=== PATIENT | female | born 1995 | race Caucasian/White ===

== ENCOUNTER → 2017-12-12 11:33 | Outpatient (CLI) | payer OTHER, SELFPAY ==
[2017-12-12 12:05] LABS: Basophils % 0.2 % (0.1-2.0); Eosinophils # 0.1 K/mm3 (0.0-0.4); Eosinophils % 2.1 % (0.1-12.0); Hematocrit 44.1 % (37.0-47.0); Hemoglobin 14.7 g/dL (12.2-16.2); Lymphocytes % 38.5 K/mm3 (10-50); Mean Corpuscular HGB Conc 33.3 g/dL (31.8-35.4); Mean Corpuscular Hemoglobin 33.5 pg (27.0-31.2); Mean Corpuscular Volume 100.4 fl (81-99); Mean Platelet Volume 8.2 fl (7.4-10.4); Monocytes # 0.4 K/mm3 (0.1-1.0); Monocytes % 7.3 % (1.7-9.3); Neutrophils # 2.8 K/mm3 (1.8-7.8); Neutrophils % 51.9 % (37.0-80.0); Platelet Count 220 K/mm3 (142-424); Red Blood Count 4.39 M/mm3 (4.20-5.40); Red Cell Distribution Width 12.5 % (11.5-17.5); White Blood Count 5.3 K/mm3 (4.8-10.8)
[2017-12-12 14:22] LABS: HCG Qualitative, Serum Negative (Negative)
--- NOTE | 2017-12-12 14:39 | US_ITS ---
US transvaginal HISTORY: Right lower quadrant pain, pelvic pain ITS.REASON: RLQ Pain ORDERING PHYSICIAN: Sandeep Dillard MD PATIENT AGE: 21 years COMPARISON: None FINDINGS: The uterus is retroverted and measures 8 x 4 x 5.5 cm with a combined endometrial thickness of 8 mm. No uterine mass evident. The left ovary is 4.6 x 2 cm. The right ovary is 3.5 x 2.4 cm. Multiple bilateral ovarian follicles are present without dominant cyst. Small amount cul-de-sac fluid is noted. Bilateral ovarian blood flow is present. IMPRESSION: Multiple bilateral ovarian follicles with small amount fluid in the cul-de-sac otherwise negative pelvic ultrasound
== END ==
PROVIDERS: PCP Physician Assistant; Visit Provider Nurse Practitioner Obstetrics & Gynecology
DX: Z34.90 Encounter for supervision of normal pregnancy, unspecified, unspecified trimester (principal); R10.9 Unspecified abdominal pain
CPT/HCPCS: 36415; 76830; 84703; 85025

== ENCOUNTER 2021-09-09 09:05 | Emergency (ER) | payer BC, SELFPAY ==
[2021-09-09 09:20] VITALS: BP 128/86; PULSE 89; RESP 18; TEMP 36.7; O2SAT 99; BMI 21.1
--- NOTE | 2021-09-09 10:07 | HMH.EDUTC ---
[facility] [place] Clinical Impression: Strep throat Disposition: Home, Self-Care Condition on Discharge: Good Instructions: Strep Throat (Alternative Therapy), DI for Strep Throat Additional Instructions: *Monitor Temp, Over the counter Motrin or Tylenol as directed/as needed Tylenol every 4 hours and Motrin every 6 hours (as long as your family doctor has told you that you can take it) for fever or pain. and straight to ER if unable to lower temp less than 101.0 after medication given *Warm salt water gargles may help to soothe the throat *Throat Lozenges *Warm fluids like tea with honey may help to soothe the throat *Sleep elevated *Humidifier/Vaporizer *If you did not take Penicillin shot or was unable to, start taking antibiotic immediately and make sure that you take it for the FULL length of time although you should start to feel better in 24-48 hours *change toothbrush and toothpaste 24-48 hours after starting to take antibiotics so you do not reinfect yourself Monitor Temp. Tylenol and/or Ibuprofen as needed. ER if fever is no less than 101 despite alternating Tylenol and Ibuprofen * Encourage fluids, water, Gatorade, powerade, pedialyte if /toddler/or child *Cold fluids, popsicles and ice cream may feel good on his throat Follow up IMMEDIATELY for new or worsening symptoms or no Noticeable improvement over the next 48-72 hours. 911 for difficulty breathing or swallowing Prescriptions: Amoxicillin [Amoxicillin 500mg Cap] 500 mg PO BID 10 Days #20 cap Transmission Status: Pending to [facility] Referrals: Rowena Fraser APRN [Primary Care Provider] - As needed Forms: Work/School Release Time of Disposition: 10:10 Medical Decision Making - Laron Inquiry Pt receiving controlled substance: No Laron was queried for this patient: No Vital Signs: 09/09/21 09:20 Temperature 98.0 F Temperature Source Oral Pulse Rate [Left Brachial] 89 Respiratory Rate 18 Blood Pressure [Left Arm] 128/86 Blood Pressure Mean [Left Arm] 100 Blood Pressure Source [Left Arm] Automatic Cuff Blood Pressure Position [Left Arm] Sitting 02 Sat by Pulse Oximetry 99 Oxygen Delivery Method Room Air - Lab Data Lab results reviewed: Yes: I reviewed the patient's lab results. [facility] [place]PI - General Stated complaint: sore throat, body aches, congestion Time Seen by Provider: 09/09/21 10:07 Mode of Arrival: Ambulatory Source of Information: Patient Limitations: No Limitations Description of Symptoms (Recalled from Triage Doc. by RN): PATIENT C/O SORE THROAT, RECENTLY EXPOSED TO STREP HEENT Symptoms (Recalled from RN notes): Yes Resp Symptoms (Recalled from RN notes): No Skin Symptoms (Recalled from RN notes): No MS Symptoms (Recalled from RN notes): No Functional Status (Recalled from RN notes): WNL - History of Present Illness Provider Complaint: Patient states that she was recently around someone that tested positive for Strep throat States that she has been having sore scratchy throat and noticed she had bumps in the back of her throat - Related Data Home Medications Medication Instructions Recorded Confirmed guaiFENesin [Mucinex] 600 mg PO BID 09/09/21 09/09/21 Previous Rx's Medication Instructions Recorded Amoxicillin [Amoxicillin 500mg 500 mg PO BID 10 Days #20 cap 09/09/21 Cap] Allergies Allergy/AdvReac Type Severity Reaction Status Date / Time No Known Allergies Allergy Verified 12/12/17 10:19 - Worker's Comp Is this a Worker's Comp case?: No [facility] History - Hepatitis A Screen Drug use history?: No High risk sexual behaviors?: No History of sexually transmitted infection?: No Currently employed?: No Childcare worker?: No Do you have indoor plumbing?: Yes Do you have electricity?: Yes Attestation statement:: This patient has been screened for Hepatitis A risk factors. I have reviewed the patient's past medical history: Yes Laterality Cases: Bilateral:
[2021-09-09 10:11] LABS: UTC Strep Screen (Rapid) Positive (Negative)
[2021-09-09 10:25] VITALS: BP 128/86; PULSE 89; RESP 18; TEMP 36.7; O2SAT 99
== END 2021-09-09 10:28 | disposition home or self-care (01) ==
PROVIDERS: Emergency Provider Nurse Practitioner; PCP Nurse Practitioner Family
DX: J02.0 Streptococcal pharyngitis (principal); Z87.891 Personal history of nicotine dependence
CPT/HCPCS: 87880; 99202; G0463

== ENCOUNTER 2021-10-23 09:02 | Emergency (ER) | payer BC, SELFPAY ==
[2021-10-23 09:05] VITALS: BP 115/74; PULSE 86; RESP 18; TEMP 36.7; O2SAT 99; BMI 21.1
--- NOTE | 2021-10-23 09:39 | HMH.EDUTC ---
[facility] [place] Disposition Clinical Impression: COVID-19 virus test result unknown Otitis media Qualifiers: Otitis media type: suppurative Chronicity: acute Laterality: bilateral Recurrence: non-recurrent Spontaneous tympanic membrane rupture: without spontaneous rupture Qualified Code(s): H66.003 - Acute suppurative otitis media without spontaneous rupture of ear drum, bilateral Disposition: Home, Self-Care Condition on Discharge: Good Instructions: COVID-19: Protecting Yourself When You're at High Risk, DI for COVID-19 (Suspected or Confirmed ), Middle Ear Infection Additional Instructions: Start antibiotic as soon as possible and be sure to take as ordered for full length of time even though he should start feeling better in 24-48 hours. Tylenol or Motrin as needed for pain or fever Encourage fluids, water, Gatorade, Powerade, Pedialyte if infant/toddler/child Warm compresses often helps when placed over ear Return immediately for new or worsening symptoms no noticeable improvement in 48-72 hours and in 10-14 days to ensure the ears are return to baseline. Follow-up with primary care covid swab was sent to lab, call later today for results. self isolate until test results are known to be negative Prescriptions: Amoxicillin [Amoxicillin 500mg Tab] 500 mg PO BID 10 Days #20 tab Prescription Printed Referrals: Rowena Fraser APRN [Primary Care Provider] - Time of Disposition: 09:43 Medical Decision Making - Laron Inquiry Pt receiving controlled substance: No Vital Signs: 10/23/21 09:05 Temperature 98.0 F Temperature Source Oral Pulse Rate [Right Brachial] 86 Respiratory Rate 18 Blood Pressure [Right Arm] 115/74 Blood Pressure Mean [Right Arm] 87 Blood Pressure Source [Right Arm] Automatic Cuff Blood Pressure Position [Right Arm] Sitting 02 Sat by Pulse Oximetry 99 Oxygen Delivery Method Room Air Orders (Tests/Meds): ORDERS Category Date Time Status Covid-19 Nasal PCR ([facility]) Routine Lab 10/23/21 09:27 Ordered [facility] [place] HPI - General Chief complaint: [facility] Stated complaint: covid symptoms Time Seen by Provider: 10/23/21 09:39 Mode of Arrival: Ambulatory Source of Information: Patient Limitations: No Limitations Description of Symptoms (Recalled from Triage Doc. by RN): PATIENT C/O CONGESTION, FEVER, LOWER BACK PAIN, AND BODY ACHES X 3 DAYS HEENT Symptoms (Recalled from RN notes): Yes Resp Symptoms (Recalled from RN notes): No Skin Symptoms (Recalled from RN notes): No MS Symptoms (Recalled from RN notes): No Functional Status (Recalled from RN notes): WNL - History of Present Illness Provider Complaint: 25 yr old female presents for congestion,ear pain,fever,low back pain, and body aches for 3 days - Related Data Home Medications Medication Instructions Recorded Confirmed guaiFENesin [Mucinex] 600 mg PO BID 09/09/21 09/09/21 Previous Rx's Medication Instructions Recorded Amoxicillin [Amoxicillin 500mg 500 mg PO BID 10 Days #20 cap 09/09/21 Cap] Amoxicillin [Amoxicillin 500mg Tab] 500 mg PO BID 10 Days #20 tab 10/23/21 Allergies Allergy/AdvReac Type Severity Reaction Status Date / Time No Known Allergies Allergy Verified 12/12/17 10:19 - Worker's Comp Is this a Worker's Comp case?: No [facility] History - Hepatitis A Screen Drug use history?: No High risk sexual behaviors?: No History of sexually transmitted infection?: No Currently employed?: No Childcare worker?: No Do you have indoor plumbing?: Yes Do you have electricity?: Yes Attestation statement:: This patient has been screened for Hepatitis A risk factors. I have reviewed the patient's past medical history: Yes Laterality Cases: Bilateral: Tonsillectomy Amputation: No Fractures: No - Social History Smoking Status: Former smoker Tobacco Type: cigarettes Alcohol Intake: never Alcohol Intake Frequency:: holidays/special occasions only Substance Use Type: marijuana Occupational Stat
[2021-10-23 09:41] LABS: UTC Influenza A Antigen Negative (Negative)
[2021-10-23 09:42] LABS: UTC Influenza B Antigen Negative (Negative)
[2021-10-23 09:50] VITALS: BP 115/74; PULSE 86; RESP 18; TEMP 36.7; O2SAT 99
== END 2021-10-23 09:59 | disposition home or self-care (01) ==
PROVIDERS: Nurse Practitioner; Emergency Provider Nurse Practitioner Family; PCP Nurse Practitioner Family
DX: H66.003 Acute suppurative otitis media without spontaneous rupture of ear drum, bilateral (principal); Z20.822 Contact with and (suspected) exposure to COVID-19; Z87.891 Personal history of nicotine dependence
CPT/HCPCS: 87804; 99202; C9803; G0463; U0003; U0005

== ENCOUNTER 2022-02-19 08:58 | Emergency (ER) | payer BC, SELFPAY ==
[2022-02-19 09:12] VITALS: BP 112/81; PULSE 114; RESP 18; TEMP 36.8; O2SAT 98; BMI 21.1
[2022-02-19 09:36] LABS: UTC Influenza A Antigen Negative (Negative); UTC Influenza B Antigen Negative (Negative)
--- NOTE | 2022-02-19 09:41 | HMH.EDUTC ---
[facility] [place]ression: Campylobacter enteritis Disposition: Home, Self-Care Condition on Discharge: Good Instructions: Viral Gastroenteritis, Promethazine Additional Instructions: Drink plenty of fluids. Take tylenol or ibuprofen for pain or fever. Take the medications as directed. Follow up with your regular doctor. GO TO THE ER FOR ANY WORSENING SYMPTOMS Prescriptions: Ondansetron [Zofran 4mg ODT] 4 mg PO Q8HP PRN #20 tab PRN Reason: Nausea [facility] Dicyclomine HCl [Bentyl 10mg capsule] 10 mg PO TIDP PRN #20 cap PRN Reason: Cramping Transmission [facility] Promethazine HCl [Phenergan 25mg tab] 25 mg PO Q6H PRN #25 tab PRN Reason: Nausea And Vomiting Transmission Status[facility] Referrals: Rowena Fraser APRN [Primary Care Provider] - Forms: Work/School Release Time of Disposition: 11:27 Medical Decision Making - Medical Records Medical records reviewed: No: I reviewed the patient's medical records. - Laron Inquiry Pt receiving controlled substance: No Vital Signs: 02/19/22 09:12 02/19/22 09:42 Temperature 98.3 F 98.3 F Temperature Source Oral Pulse Rate 114 H Pulse Rate [Left] 114 H Respiratory Rate 18 18 Blood Pressure 112/81 Blood Pressure [Right Arm] 112/81 Blood Pressure Mean [Right Arm] 91 02 Sat by Pulse Oximetry 98 - Lab Data Lab results reviewed: Yes: I reviewed the patient's lab results. Lab Results 02/19/22 09:11: Influenza Type A Ag Negative, Influenza Type B Ag Negative 02/19/22 09:12: Group A Strep Rapid Negative 02/19/22 10:08: Urine Color Dark yellow, Urine Appearance Turbid, Urine pH 5.5, Ur Specific [place] 1.025, Urine Protein Trace, Urine Glucose (UA) Negative, Urine Ketones 1+, Urine Blood 2+, Urine Nitrate Negative, Urine Bilirubin 1+ A, Urine Urobilinogen 0.2, Ur Leukocyte Esterase Negative 02/19/22 10:33: Stl Aeromonas (PCR) Not detected, Stl C. cayetanensis PCR Not detected, Stool Rotavirus (PCR) Not detected, Stl Adenov F 40/41 PCR Not detected, Stool Astrovirus (PCR) Not detected, Stool Campylobacter PCR Detected A, Stl C.difficile Tox PCR Not detected, Stool Cryptosporidium PCR Not detected, Stl E.coli Shiga Tox PCR Not detected, Stool E coli O157 PCR Not detected, Stl Enterotoxigenic E PCR Not detected, Stool EPEC (PCR) Not detected, Stool EAEC (PCR) Not detected, Stl E. histolytica PCR Not detected, Stool Giardia Lamblia PCR Not detected, Stool Salmonella PCR Not detected, Stool Sapovirus (PCR) Not detected, Stl P. shigelloides PCR Not detected, Stl Shigella/EIEC PCR Not detected, St Y.enterocolitica PCR Not detected, Stool Vibrio (PCR) Not detected, Stl Vibrio cholerae PCR Not detected, Stl Norovirus GI/GII PCR Not detected Orders (Tests/Meds): ED MEDICATIONS Discontinued Medications Generic Name Dose Route Start Last Admin Trade Name Freq PRN Reason Stop Dose Admin Dicyclomine HCl 20 mg 02/19/22 09:50 02/19/22 10:29 Dicyclomine 10mg Capsule PO 02/19/22 09:51 20 mg ONCE ONE Administration Sodium Chloride 1,000 mls @ 999 mls/hr 02/19/22 10:00 02/19/22 10:30 Sod Chlor 0.9% 1000ml Bag IV 02/19/22 11:00 999 mls/hr .Q1H1M FLORA Administration Promethazine HCl 25 mg 02/19/22 09:50 02/19/22 10:30 Promethazine Hcl 25mg/Ml 1ml Vial IV 02/19/22 09:51 25 mg ONCE ONE Administration Sodium Chloride 25 ml 02/19/22 09:50 Sodium Chloride 0.9% 25ml Bag IV 02/19/22 09:51 ONCE ONE ORDERS Category Date Time Status Strep Screen Confirmation Stat Micro 02/19/22 09:12 Received [facility] [place] - General Stated complaint: diarrhea, nausea, fatigue, fever Time Seen by Provider: 02/19/22 09:41 Mode of Arrival: Ambulatory Source of Information: Patient Limitations: No Limitations Description of Symptoms (Recalled from Triage Doc. by RN): pt c/o a stomach ache, diarrhea, b
[2022-02-19 09:42] VITALS: BP 112/81; PULSE 114; RESP 18; TEMP 36.8
[2022-02-19 09:44] LABS: Strep Scrn Group A (Rapid) Negative (Negative)
[2022-02-19 10:13] LABS: Apearance,Urine Turbid (Clear); Color,Urine Dark Yellow (Yellow); Glucose,Urine (UA) Negative (Negative); PH,Urine 5.5 (5.0-8.5); Protein,Urine Trace (Negative); Specific Gravity, Urine 1.025 (1.005-1.030)
[2022-02-19 10:14] LABS: Bilirubin,Urine 1+ (Negative); Blood, Urine 2+ (Negative); Ketones,Urine 1+ (Negative); UTC Leukocyte Esterase,Urine Negative (Negative); UTC Nitrate,Urine Negative (Negative); Urobilinogen,Urine 0.2 EU/dl (0.2)
[2022-02-19 10:41] LABS: Adenovirus F 40/41, stool Not Detected (NotDetected); Astrovirus Not Detected (NotDetected); Clostridium Difficile A/B, PCR Not Detected (NotDetected); Cryptosporidium Not Detected (NotDetected); Cyclospora Cayetanesis Not Detected (NotDetected); Entamoeba histolytica Not Detected (NotDetected); Enteroaggregative E coli Not Detected (NotDetected); Enteropathogenic E coli Not Detected (NotDetected); Enterotoxigenic E coli Not Detected (NotDetected); Giardia lamblia Not Detected (NotDetected); Norovirus Not Detected (NotDetected); Plesimonas Shigalloides, PCR Not Detected (NotDetected); Rotavirus A Not Detected (NotDetected); Salmonella, PCR Not Detected (NotDetected); Sapovirus Not Detected (NotDetected); Shiga-like toxin E coli Not Detected (NotDetected); Shigella Enterovasive E coli Not Detected (NotDetected); Vibrio Cholerae Not Detected (NotDetected); Vibrio, PCR Not Detected (NotDetected); Yersinia Entercolitica, PCR Not Detected (NotDetected)
[2022-02-19 13:33] LABS: Campylobacter Detected (NotDetected)
== END 2022-02-19 11:52 | disposition home or self-care (01) ==
PROVIDERS: Emergency Provider Nurse Practitioner Family; PCP Nurse Practitioner Family
DX: A04.5 Campylobacter enteritis (principal); Z87.891 Personal history of nicotine dependence
CPT/HCPCS: 81003; 87430; 87506; 87804; 96360; 96375; 99213; G0463

== ENCOUNTER → 2022-04-05 15:13 | Outpatient (CLI) | payer BC, SELFPAY ==
--- NOTE | 2022-04-05 15:13 | US_ITS ---
PROCEDURE INFORMATION: Exam: US Left Breast, Complete Exam date and time: 04/05/2022 3:56 PM Age: 26 years old Clinical indication: Concern for left breast lump at 2 o'clock. No reported family history of breast cancer. TECHNIQUE: Imaging protocol: Complete ultrasound of all four quadrants of the Left breast and the retroareolar regions, including ultrasound of the axilla when performed. COMPARISON: No relevant prior studies available. FINDINGS: Breast: Left sonography, all 4 quadrants, retroareolar and axilla. No cystic or solid findings demonstrated with particular attention to the area of palpable concern at 2 o'clock 5 cm from the nipple. Sonographically unremarkable left axillary lymph node. IMPRESSION: No sonographic findings at the area of clinical concern. No sonographic evidence of malignancy. Further evaluation of a palpable abnormality should be based on clinical grounds regardless of radiographic findings or lack thereof. Annual mammographic screening is recommended, at age 40, unless otherwise clinically indicated. ASSESSMENT: BI-RADS Category 1: Negative
== END ==
PROVIDERS: PCP Nurse Practitioner Family; Visit Provider Obstetrics & Gynecology
DX: N63.20 Unspecified lump in the left breast, unspecified quadrant (principal)
CPT/HCPCS: 76641

== ENCOUNTER 2022-05-17 09:11 | Emergency (ER) | payer BC, SELFPAY ==
--- NOTE | 2022-05-17 09:18 | HMH.EDUTC ---
[facility] [place] Clinical Impression: Viral syndrome, Exposure to COVID-19 virus Disposition: Home, Self-Care Condition on Discharge: Good Instructions: DI for COVID-19 (Suspected or Confirmed ), Preventing the Spread of Coronavirus Discharge Instructions Additional Instructions: Drink plenty of fluids. Take tylenol or ibuprofen for pain or fever. Take the medications as directed. Follow up with your regular doctor. GO TO THE ER FOR ANY WORSENING SYMPTOMS Quarantine until you know the results of your covid-19 test. Notify your school or workplace of your results and follow their instructions regarding return to work/school. Prescriptions: Ondansetron [Zofran 4mg ODT] 4 mg PO Q8HP PRN #20 tab PRN Reason: Nausea Transmission Status: Received by [facility] Benzonatate [Benzonatate 100mg cap] 100 mg PO TIDP PRN #30 cap PRN Reason: Cough Transmission Status: Received by [facility] Referrals: Rowena Fraser APRN [Primary Care Provider] - Time of Disposition: 09:45 Medical Decision Making - Medical Records Medical records reviewed: No: I reviewed the patient's medical records. - Laron Inquiry Pt receiving controlled substance: No Vital Signs: 05/17/22 09:30 05/17/22 09:49 Temperature 97.9 F 97.9 F Temperature Source Oral Oral Pulse Rate 87 Pulse Rate [Left Radial] 89 Respiratory Rate 18 17 Blood Pressure 112/75 Blood Pressure [Right Arm] 111/69 Blood Pressure Mean [Right Arm] 83 02 Sat by Pulse Oximetry 94 L Oxygen Delivery Method Room Air - Lab Data Lab results reviewed: Yes: I reviewed the patient's lab results. Lab Results 05/17/22 09:24: Strep Scn Rapid Clinic Negative [facility] [place]PI - General Stated complaint: covid symptoms Time Seen by Provider: 05/17/22 09:18 - History of Present Illness Provider Complaint: She states that she has had cough, scratchy sore throat, chills and body aches for the past 1 day. - Related Data Home Medications Medication Instructions Recorded Confirmed Cetirizine HCl [Zyrtec] 10 mg PO DAILY 05/17/22 05/17/22 Previous Rx's Medication Instructions Recorded Benzonatate [Benzonatate 100mg 100 mg PO TIDP PRN #30 cap 05/17/22 cap] Ondansetron [Zofran 4mg ODT] 4 mg PO Q8HP PRN #20 tab 05/17/22 Allergies Allergy/AdvReac Type Severity Reaction Status Date / Time No Known Allergies Allergy Verified 03/29/22 10:37 [facility] History - Hepatitis A Screen Attestation statement:: This patient has been screened for Hepatitis A risk factors. I have reviewed the patient's past medical history: Yes Laterality Cases: Bilateral: Tonsillectomy Amputation: No Fractures: No Comment: No previous surgery - Social History Smoking Status: Former smoker Tobacco Type: cigarettes Alcohol Intake: never Alcohol Intake Frequency:: holidays/special occasions only Substance Use Type: marijuana Occupational Status: other Family Hx:: Hypertension, Hyperlipidemia, Diabetes, Cancer, Thyroid Disorder ROS Obtained: Yes All systems reviewed & no additional complaints - Constitutional Constitutional: Reports as per HPI - Eyes Eyes: Reports eye discharge - ENT Ears, Nose, Mouth, and Throat: Reports as per HPI - Cardiovascular Cardiovascular: Denies chest pain - Respiratory Respiratory: Denies chest congestion, Reports cough Physical Exam - General General appearance: alert, in no apparent distress - Head Head exam: atraumatic, normocephalic, normal inspection - Eye Eye exam: Present: normal appearance, PERRL, EOMI - ENT ENT exam: Present: normal exam, normal oropharynx, mucous membranes moist, TM's normal bilaterally, normal external ear exam - Neck Neck exam: Present: normal inspection, full ROM, trachea midline. Absent: meningismus, lymphadenopathy - Chest Chest inspection: Present: normal inspection, symmetric chest wall rise. Absent: tenderness - Respiratory R
[2022-05-17 09:30] VITALS: BP 111/69; PULSE 89; RESP 18; TEMP 36.6; O2SAT 94; BMI 21.1
[2022-05-17 09:34] LABS: UTC Strep Screen (Rapid) Negative (Negative)
[2022-05-17 09:49] VITALS: BP 112/75; PULSE 87; RESP 17; TEMP 36.6; O2SAT 95
== END 2022-05-17 09:50 | disposition home or self-care (01) ==
PROVIDERS: Emergency Provider Nurse Practitioner Family; PCP Nurse Practitioner Family
DX: Z20.822 Contact with and (suspected) exposure to COVID-19 (principal); R05.9 Cough, unspecified; J02.9 Acute pharyngitis, unspecified; R50.9 Fever, unspecified; R52 Pain, unspecified; Z87.891 Personal history of nicotine dependence
CPT/HCPCS: 87880; 99212; C9803; G0463; U0003; U0005

== ENCOUNTER → 2022-10-16 10:36 | Outpatient (CLI) | payer BC, SELFPAY ==
[2022-10-16 12:53] LABS: HCG,Quantitative 845 mIU/ml (0-5.42)
== END ==
PROVIDERS: PCP Nurse Practitioner Family; Visit Provider Obstetrics & Gynecology
DX: N92.6 Irregular menstruation, unspecified (principal); Z32.00 Encounter for pregnancy test, result unknown
CPT/HCPCS: 36415; 84702

== ENCOUNTER → 2022-11-07 11:51 | Outpatient (CLI) | payer BC, SELFPAY ==
[2022-11-07 12:37] LABS: Basophils % 0.4 % (0.1-2.0); Eosinophils # 0.2 K/mm3 (0.0-0.4); Eosinophils % 1.7 % (0.1-12.0); Hematocrit 44.7 % (37.0-47.0); Hemoglobin 14.5 g/dL (12.2-16.2); Lymphocytes # 2.7 K/mm3 (0.7-4.5); Mean Corpuscular HGB Conc 32.5 g/dL (31.8-35.4); Mean Corpuscular Hemoglobin 33.3 pg (27.0-31.2); Mean Corpuscular Volume 102.3 fl (81-99); Mean Platelet Volume 10.2 fl (7.4-10.4); Monocytes # 0.6 K/mm3 (0.1-1.0); Monocytes % 5.8 % (1.7-9.3); Neutrophils # 6.7 K/mm3 (1.8-7.8); Neutrophils % 66.1 % (37.0-80.0); Platelet Count 247 K/mm3 (142-424); Red Blood Count 4.37 M/mm3 (4.20-5.40); Red Cell Distribution Width 12.9 % (11.5-17.5); White Blood Count 10.2 K/mm3 (4.8-10.8)
[2022-11-07 17:37] LABS: Barbiturates Screen,Urine Negative ng/ml (<200)
[2022-11-07 17:38] LABS: Benzodiazepines Screen,Urine Negative ng/ml (<200)
[2022-11-07 17:39] LABS: Amphetamine/Metha Screen,Urine Negative ng/ml (<1000); Cannabinoid Screen,Urine Negative ng/ml (<50)
[2022-11-07 17:40] LABS: Cocaine Screen,Urine Negative ng/ml (<300)
[2022-11-07 17:41] LABS: Methadone Screen,Urine Negative ng/ml (<300); Opiate Screen,Urine Negative ng/ml (<300)
[2022-11-07 17:42] LABS: Phencyclidine Screen,Urine Negative ng/ml (<25)
[2022-11-09 12:59] LABS: HIV Screen 4th Generation wRfx Non Reactive (Non Reactive); Rapid Plasma Reagin Ab Titer Non Reactive (NonRea<1:1)
[2022-11-10 22:08] LABS: Hepatitis B Surface Antigen NEGATIVE
[2022-11-10 22:09] LABS: Hepatitis C Antibody 0.1
== END ==
PROVIDERS: PCP Nurse Practitioner Family; Visit Provider Obstetrics & Gynecology
DX: Z34.90 Encounter for supervision of normal pregnancy, unspecified, unspecified trimester (principal)
CPT/HCPCS: 36415; 80305; 85025; 86593; 86703; 86762; 86850; 87086; 87088; 87186; 87340; 87380; G0432

== ENCOUNTER → 2022-11-07 22:23 | Outpatient (CLI) | payer BC, SELFPAY | PROVIDERS: Visit Provider Obstetrics & Gynecology | DX: Z34.90 Encounter for supervision of normal pregnancy, unspecified, unspecified trimester (principal) ==

== ENCOUNTER → 2023-02-06 12:34 | Outpatient (CLI) | payer BC, SELFPAY ==
--- NOTE | 2023-02-06 12:35 | US_ITS ---
FINAL REPORT CLINICAL HISTORY: 20 week anatomy scan please use anatomy template FINDINGS: There is a single live intrauterine gestation. Presentation is cephalic. The cervix is closed and measures 5.1 cm. Placenta is posterior, grade 1. Note is made of placental lakes. movement is noted. Three-vessel cord with satisfactory umbilical cord insertion. Four-chamber heart is noted. brain and ventricles are unremarkable. Chest and diaphragm are unremarkable. ABDOMEN: Both kidneys are unremarkable. Stomach is unremarkable. SPINE: No anomalies identified. Both arms and legs noted. AMNIOTIC FLUID: Appropriate amount. MEASUREMENTS: ULTRASOUND AGE: 21 weeks 2 days. GESTATION AGE: 20 weeks 4 days. ESTIMATED WEIGHT: 399 g GROWTH PERCENTILE: 74% LMP percentile BPD: 5.1 cm corresponding with 21 weeks 4 days. OFD: 6.8 cm corresponding with 22 weeks 2 days. HC: 18.9 cm corresponding with 21 weeks 2 days. AC: 15.9 cm corresponding with 21 weeks 0 days. FL: 3.5 cm corresponding with 21 weeks 2 days. CEREBELLUM: 2.2 cm corresponding with 22 weeks 0 days. HUMERUS: 3.4 cm corresponding with 21 weeks 3 days. HC/AC: 1.19 CI: 75% FL/BPD: 69% FL/AC: 22% IMPRESSION: Single living IUP with an ultrasound age of 21 weeks 2 days. No gross anomalies noted. Reviewed, Interpreted and Dictated by Castro Rae III, MD Transcribed by Tamara Tavarez Authenticated and [facility]
== END ==
PROVIDERS: PCP Nurse Practitioner Family; Visit Provider Obstetrics & Gynecology
DX: Z34.90 Encounter for supervision of normal pregnancy, unspecified, unspecified trimester (principal); Z3A.20 20 weeks gestation of pregnancy
CPT/HCPCS: 76811

== ENCOUNTER → 2023-03-14 09:05 | Outpatient (CLI) | payer BC, SELFPAY ==
[2023-03-14 09:23] LABS: Basophils % 0.2 % (0.1-2.0); Eosinophils # 0.2 K/mm3 (0.0-0.4); Eosinophils % 1.4 % (0.1-12.0); Hematocrit 36.4 % (37.0-47.0); Hemoglobin 12.1 g/dL (12.2-16.2); Lymphocytes # 2.8 K/mm3 (0.7-4.5); Mean Corpuscular HGB Conc 33.2 g/dL (31.8-35.4); Mean Corpuscular Hemoglobin 33.6 pg (27.0-31.2); Mean Corpuscular Volume 101.3 fl (81-99); Mean Platelet Volume 8.6 fl (7.4-10.4); Monocytes # 0.7 K/mm3 (0.1-1.0); Monocytes % 6.2 % (1.7-9.3); Neutrophils % 66.2 % (37.0-80.0); Platelet Count 284 K/mm3 (142-424); Red Blood Count 3.59 M/mm3 (4.20-5.40); Red Cell Distribution Width 12.9 % (11.5-17.5); White Blood Count 10.6 K/mm3 (4.8-10.8)
[2023-03-14 09:30] LABS: Glucose,Fasting 79 mg/dl (74-100)
[2023-03-14 11:00] LABS: Glucose 1 Hour 136 mg/dL (74-100)
== END ==
PROVIDERS: PCP Nurse Practitioner Family; Visit Provider Obstetrics & Gynecology
DX: Z34.90 Encounter for supervision of normal pregnancy, unspecified, unspecified trimester (principal); Z3A.25 25 weeks gestation of pregnancy
CPT/HCPCS: 36415; 82951; 85025

== ENCOUNTER → 2023-03-27 07:58 | Outpatient (CLI) | payer BC, SELFPAY ==
[2023-03-27 08:41] LABS: Glucose,Fasting 82 mg/dl (74-100)
[2023-03-27 09:58] LABS: Glucose 1 Hour 165 mg/dL (74-100)
[2023-03-27 11:20] LABS: Glucose 2 Hour 138 mg/dL (74-100)
[2023-03-27 12:28] LABS: Glucose 3 Hour 94 mg/dL (74-100)
== END ==
PROVIDERS: PCP Nurse Practitioner Family; Visit Provider Obstetrics & Gynecology
DX: Z34.90 Encounter for supervision of normal pregnancy, unspecified, unspecified trimester (principal); Z3A.27 27 weeks gestation of pregnancy
CPT/HCPCS: 36415; 82951

== ENCOUNTER → 2023-04-04 10:39 | Outpatient (CLI) | payer BC, SELFPAY ==
--- NOTE | 2023-04-04 10:40 | US_ITS ---
PROCEDURE: US OB FOLLOW UP CLINICAL INDICATION: lga COMPARISON: US US OB /MATERNAL DETAIL from 02/06/2023 FINDINGS: The following parameters are obtained From her last menstrual period she is 28 weeks 5 days Viable fetus in the cephalic presentation with a posterior placenta grade 1. BPD: 30weeks 5days OFD: 29weeks 3days HC: 29weeks 6days AC: 29weeks 1day FL: 29weeks 6days heart rate: 129bpm bpm. HC/AC: 1.1 Cephalic index: 0.79 FL/BPD: 0.74 FL/AC: 0.23 Amniotic fluid index: 13.98cm No obvious anomalies evident. profile seen, stomach, bladder, kidneys, four-chamber heart and appear normal. Placenta: Posterior grade 1. Cervix: 4.4 cm IMPRESSION: 1. There is a single live fetus present in cephalic presentation. 2. Average ultrasound age 30weeks with an estimated weight 1,402g, 3 pounds 1 ounce which is 67 percentile. 3. Fluid is normal with an amniotic fluid index of 14.0 cm 4. Size and dates are congruent. Dictated by: Sandeep Dillard MD 04/04/2023 17:53 Sandeep Dillard MD in OV 04/04/2023 17:53
== END ==
PROVIDERS: PCP Nurse Practitioner Family; Visit Provider Obstetrics & Gynecology
DX: O36.60X0 Maternal care for excessive fetal growth, unspecified trimester, not applicable or unspecified (principal); Z3A.28 28 weeks gestation of pregnancy
CPT/HCPCS: 76816

== ENCOUNTER → 2023-04-10 07:20 | Outpatient (CLI) | payer BC, SELFPAY | PROVIDERS: PCP Nurse Practitioner Family; Visit Provider Internal Medicine | DX: R00.0 Tachycardia, unspecified (principal); Z3A.28 28 weeks gestation of pregnancy | CPT/HCPCS: 93306 ==

== ENCOUNTER 2023-05-18 14:47 | Outpatient (CLI) | payer BC, SELFPAY ==
[2023-05-18 15:11] VITALS: BMI 27.7
[2023-05-18 15:13] VITALS: BMI 27.7
[2023-05-18 15:33] LABS: Microscopic, Urine URINE MICROSCOPIC (MICROSCOPIC)
[2023-05-18 16:04] LABS: Appearance,Urine SL CLOUDY (Clear); Bilirubin,Urine Negative (Negative); Blood, Urine Negative (Negative); Color,Urine YELLOW (Yellow); Glucose,Urine (UA) Negative (Negative); Ketones,Urine Negative (Negative); Leukocyte Esterase,Urine 3+ (Negative); Nitrate,Urine Negative (Negative); Protein,Urine TRACE (Negative)
[2023-05-18 16:17] LABS: Amphetamine/Metha Screen,Urine Negative ng/ml (<1000); Barbiturates Screen,Urine Negative ng/ml (<200)
[2023-05-18 16:18] LABS: Benzodiazepines Screen,Urine Negative ng/ml (<200)
[2023-05-18 16:19] LABS: Cannabinoid Screen,Urine Negative ng/ml (<50); Cocaine Screen,Urine Negative ng/ml (<300)
[2023-05-18 16:20] LABS: Methadone Screen,Urine Negative ng/ml (<300); Opiate Screen,Urine Negative ng/ml (<300)
[2023-05-18 16:21] LABS: Phencyclidine Screen,Urine Negative ng/ml (<25)
[2023-05-18 16:46] LABS: Bacteria,Urine 1+ /lpf; Squamous Epithelial Cell,Urine Occasional #/hpf (0-5)
== END 2023-05-18 20:08 | disposition home or self-care (01) ==
LOC: OBOUT 14:48 → OB 14:50
PROVIDERS: PCP Nurse Practitioner Family; Visit Provider Nurse Practitioner Obstetrics & Gynecology
DX: O26.893 Other specified pregnancy related conditions, third trimester (principal); Z3A.35 35 weeks gestation of pregnancy; W19.XXXA Unspecified fall, initial encounter
CPT/HCPCS: 59025; 80305; 81001; 87086

== ENCOUNTER → 2023-06-01 17:56 | Outpatient (CLI) | payer BC, SELFPAY ==
[2023-06-01 11:10] LABS: Fetal Membrane Rupture (Rapid) Negative (Negative)
== END ==
PROVIDERS: PCP Obstetrics & Gynecology; Visit Provider Obstetrics & Gynecology
DX: Z34.93 Encounter for supervision of normal pregnancy, unspecified, third trimester (principal); Z3A.37 37 weeks gestation of pregnancy
CPT/HCPCS: 84112; 86403

== ENCOUNTER 2023-06-13 16:07 | Inpatient (IN) | payer BC, SELFPAY ==
[2023-06-13 14:35] VITALS: BP 127/86; PULSE 105; RESP 20; TEMP 37.2; O2SAT 99
[2023-06-13 15:10] VITALS: BMI 28.1
[2023-06-13 15:16] VITALS: BP 127/86; PULSE 105; RESP 20; TEMP 37.2; O2SAT 99; BMI 28.1
[2023-06-13 15:22] LABS: Microscopic, Urine URINE MICROSCOPIC (MICROSCOPIC)
[2023-06-13 15:46] LABS: Appearance,Urine CLEAR (Clear); Bilirubin,Urine Negative (Negative); Blood, Urine Negative (Negative); Color,Urine YELLOW (Yellow); Glucose,Urine (UA) Negative (Negative); Ketones,Urine TRACE (Negative); Leukocyte Esterase,Urine Negative (Negative); Nitrate,Urine Negative (Negative); Protein,Urine TRACE (Negative)
[2023-06-13 15:52] LABS: Fetal Membrane Rupture (Rapid) Positive (Negative)
[2023-06-13 15:58] LABS: Bacteria,Urine Trace /lpf; RBC,Urine Occasional #/hpf (0-3); WBC,Urine Occasional #/hpf (0-3)
[2023-06-13 16:06] LABS: Barbiturates Screen,Urine Negative ng/ml (<200); Benzodiazepines Screen,Urine Negative ng/ml (<200)
[2023-06-13 16:07] LABS: Amphetamine/Metha Screen,Urine Negative ng/ml (<1000)
[2023-06-13 16:08] LABS: Cannabinoid Screen,Urine Negative ng/ml (<50); Cocaine Screen,Urine Negative ng/ml (<300)
[2023-06-13 16:09] LABS: Methadone Screen,Urine Negative ng/ml (<300); Opiate Screen,Urine Negative ng/ml (<300)
[2023-06-13 16:10] LABS: Phencyclidine Screen,Urine Negative ng/ml (<25)
[2023-06-13 16:29] LABS: Basophils % 0.2 % (0.1-2.0); Eosinophils # 0.1 K/mm3 (0.0-0.4); Eosinophils % 0.7 % (0.1-12.0); Hematocrit 35.3 % (37.0-47.0); Hemoglobin 11.5 g/dL (12.2-16.2); Lymphocytes # 2.3 K/mm3 (0.7-4.5); Lymphocytes % 25.8 % (10-50); Mean Corpuscular HGB Conc 32.4 g/dL (31.8-35.4); Mean Corpuscular Hemoglobin 30.3 pg (27.0-31.2); Mean Corpuscular Volume 93.4 fl (81-99); Mean Platelet Volume 9.2 fl (7.4-10.4); Monocytes # 0.5 K/mm3 (0.1-1.0); Monocytes % 5.8 % (1.7-9.3); Neutrophils % 67.5 % (37.0-80.0); Platelet Count 291 K/mm3 (142-424); Red Blood Count 3.78 M/mm3 (4.20-5.40); Red Cell Distribution Width 14.2 % (11.5-17.5); White Blood Count 8.9 K/mm3 (4.8-10.8)
[2023-06-13 17:10] VITALS: TEMP 36.9
--- NOTE | 2023-06-13 17:37 | EXP.OB.APHP ---
OB - H&P: HPI Antepartum History of Present Illness Chief complaint: Leakage of fluid, contractions History of present illness: Mrs Sima Kidd is a 27 yo at 38w5d who presents to [facility] Labor and Delivery with report of leakage of fluid at 1200 today. She admits to contractions. Baby is active. She has had good care. Amnisure positive. History of Present Criteria for establishing EDC:: LMP confirmed by 1st trimester US care: good care Ultrasounds: normal mid trimester US Obstetrical complications: none Medical complications: none Labs Blood type: A (+) positive Rubella: immune RPR/VDRL: nonreactive GBS status: negative HBsAG: negative [facility] Disclaimer: The information contained in this section may have been updated after the patient was seen, as this information can be updated by other users. Medical History (Updated 06/13/23 @ 17:45 by Ning Aparicio DO) 38 weeks gestation of Heartburn during Mood disorder Murmur Posttraumatic stress disorder Spontaneous onset of labor Spontaneous rupture of amniotic membranes Tachycardia Surgical History History of tonsillectomy Family History Father FHx: mental illness Hyperlipidemia Mother Hypertension Social History Smoking Status: Former smoker second hand exposure: No alcohol intake: never counseling given: No substance use type: marijuana counseling given: No (she stopped smoking this last month) current occupational status: other Travel in the last 8 weeks: None adopted: No caregiver/support person: Yes (for her daughter) foster care: No household members: spouse housing: house lives independently: Yes marital status: number of children: 1 number of grandchildren: 0 education level: college service: No usp: No Hx Recent Travel: No sexually active: Yes physical activity: none working smoke detector in home: Yes fire extinguisher in home: No carbon monox detector in home: No firearms in home: Yes firearms unloaded and locked: Yes Review of Systems Review of Systems Review of systems:: pertinent systems reviewed and negative unless documented below *Genitourinary Comments: + leakage of fluid, contractions Meds Home Medications and Allergies Home Medications Medication Instructions Recorded Confirmed Type prenat.vits,lin,fre-jgok-cxqti 1 tab PO DAILY 11/07/22 06/08/23 History cetirizine 10 mg tablet (Zyrtec) 10 mg PO DAILY PRN 12/05/22 06/08/23 History doxylamine succinate 25 mg tablet 25 mg PO HS PRN 12/05/22 06/08/23 History (Unisom (doxylamine)) fluticasone propionate 50 1 spray intranasal DAILY 04/04/23 06/08/23 History mcg/actuation nasal spray,suspension (Flonase Allergy Relief) New Prescriptions to Start Prescriptions: Allergies Allergy/AdvReac Type Severity Reaction Status Date / Time No Known Allergies Allergy Verified 06/08/23 12:59 OB - H&P: Exam Constitutional no acute distress Routine HEENT Exam Head: Present normocephalic and atraumatic Eye: Absent conjunctivae pink ENT: Present mucous membranes moist and dentition normal Routine Neck Exam Present full ROM Routine Respiratory Exam Present CTA bilaterally and normal respiratory effort Routine Cardiovascular Exam Present RRR Routine Abdominal Exam Present soft (Gravid); Absent tenderness Routine Rectal Exam Patient deferred: visual exam Routine Exam Patient deferred: external exam Routine Extremities Exam Present edema (+1 bilateral lower extremity edema) and full ROM; Absent calf tenderness Routine Neurological Exam Present alert, oriented X3 and moving all extremities Routine Psychiatric Exam Present normal affect and cooperative Deta
--- NOTE | 2023-06-13 22:19 | EXP.ANES.CKL ---
[facility] Disclaimer: The information contained in this section may have been updated after the patient was seen, as this information can be updated by other users. Medical History (Updated 06/13/23 @ 17:45 by Ning Aparicio DO) 38 weeks gestation of Heartburn during Mood disorder Murmur Posttraumatic stress disorder Spontaneous onset of labor Spontaneous rupture of amniotic membranes Tachycardia Surgical History History of tonsillectomy Family History Father FHx: mental illness Hyperlipidemia Mother Hypertension Social History Smoking Status: Former smoker second hand exposure: No alcohol intake: never counseling given: No substance use type: marijuana counseling given: No (she stopped smoking this last month) current occupational status: employed Travel in the last 8 weeks: None adopted: No caregiver/support person: Yes (for her daughter) foster care: No household members: spouse housing: house lives independently: Yes marital status: number of children: 1 number of grandchildren: 0 education level: college service: No detention: No Hx Recent Travel: No sexually active: Yes physical activity: none working smoke detector in home: Yes fire extinguisher in home: No carbon monox detector in home: No firearms in home: Yes firearms unloaded and locked: Yes [facility] Anesthesia Checklist Patient Identification Patient Identification: Verbal (Name & ) Structural Data Admitted From: Inpatient Planned Operative Procedure/s: labor epidural Consent for Planned Operative Procedure(s) Verified: Yes Airway Assessment Mallampati Score:: Class I C-Spine Mobility Assessed: Yes TMJ Mobility Assessed: Yes Dentition: Good Dentition Neurological Assessment Level of Consciousness: Awake, Alert and Appropriate Anesthesia Plan Anesthesia Risk discussed: Yes Anesthesia Plan: Verified ASA Class: II Anesthesia Type: Epidural
[2023-06-14 07:15] VITALS: TEMP 36.6
[2023-06-14 09:00] VITALS: TEMP 36.8
--- NOTE | 2023-06-14 10:29 | EXP.DN ---
Delivery Note Delivery Date:: 06/14/23 Delivery Time:: 09:56 Anesthesia Type: Epidural Was labor medically induced?: No Gestational age (weeks): 38 Infant delivered prior to 39 weeks?: Yes Justification for early elective delivery:: Active Labor Infant Gender: Male at 1 minute: 6 at 5 minutes: 8 LAC or MLE?: LAC Delivery Procedure:: Mom complete with epidural. Pushed for approximately 36 minutes. Head delivered spontaneously over intact perineum in OA position. Nuchal cord x 1 was easily reduced. Mild shoulder dystocia resolved in under 5 seconds with Edy maneuver and suprapubic pressure. Anterior shoulder delivered with gentle downward pressure. Posterior shoulder and remainder of body delivered spontaneously. Baby placed on maternal abdomen, mouth and nares bulb suctioned, warmed/dried and stimulated. Delayed cord clamping was performed for 60 seconds. Cord was clamped and cut by father of baby. Cord blood was obtained. Placenta delivered spontaneously and intact. First degree perineal laceration and small perineal skin tear repaired with 3-0 Vicryl. Hemostasis noted. Mom and baby were skin to skin and doing well after delivery. Live male baby (baby's name is Hubert) APGARs 6, 8 EBL 200 mL Laceration:: vaginal Placental Delivery Description: Spontaneous
[2023-06-14 20:00] VITALS: BP 117/76; PULSE 88; RESP 18; TEMP 36.6; O2SAT 98
[2023-06-15 06:38] LABS: Basophils % 0.2 % (0.1-2.0); Eosinophils # 0.1 K/mm3 (0.0-0.4); Eosinophils % 0.7 % (0.1-12.0); Hematocrit 32.4 % (37.0-47.0); Hemoglobin 10.3 g/dL (12.2-16.2); Lymphocytes # 3.3 K/mm3 (0.7-4.5); Lymphocytes % 28.4 % (10-50); Mean Corpuscular HGB Conc 31.7 g/dL (31.8-35.4); Mean Corpuscular Hemoglobin 29.6 pg (27.0-31.2); Mean Corpuscular Volume 93.5 fl (81-99); Mean Platelet Volume 10.3 fl (7.4-10.4); Monocytes # 0.8 K/mm3 (0.1-1.0); Monocytes % 6.6 % (1.7-9.3); Neutrophils # 7.5 K/mm3 (1.8-7.8); Neutrophils % 64.2 % (37.0-80.0); Platelet Count 258 K/mm3 (142-424); Red Blood Count 3.47 M/mm3 (4.20-5.40); Red Cell Distribution Width 14.5 % (11.5-17.5); White Blood Count 11.7 K/mm3 (4.8-10.8)
--- NOTE | 2023-06-15 07:49 | P.CONPHA_ITS ---
Pharmacy Intervention Comments: MEDICATION RECONCILIATION COMPLETED ON PATIENT USING LIST FROM [facility] OFFICE. -JAYMIE KOCH, ENOCHD
--- NOTE | 2023-06-15 07:49 | HMH.PHAINT1 ---
Pharmacy Intervention Comments: MEDICATION RECONCILIATION COMPLETED ON PATIENT USING LIST FROM [facility] OFFICE. -JAYMIE KOCH, ENOCHD
--- NOTE | 2023-06-15 13:30 | EXP.DC.SUM ---
General Admission date:: 06/13/23 Discharge date: 06/15/23 HPI HPI HPI: POD # 1 s/p Resting comfortably in bed. Appropriate lochia. Breast feeding. Pain controlled. Voiding without difficulty and passing flatus. Tolerating regular diet. Denies fever/chills, chest pain and shortness of breath. No headaches, dizziness/lightheadedness. Admits to lower extremity swelling. Ambulating well ad solomon. Hospital Course Hospital Course Hospital Course: Mrs Sima Kidd is a 27 yo at 38w5d admitted to [facility] Labor and Delivery for spontaneous rupture of membranes and onset of labor. She has had good care. Amnisure was positive. Labor was augmented with Pitocin. GBS negative She had a normal spontaneous vaginal delivery on 06/14/23 at 0956. She delivered a live male baby (baby's name is Hubert) weighing 9 lb 1 oz. APGARs 6, 8. EBL 200 mL. She did well . Pain controlled. Appropriate lochia. Breast feeding. Voiding without difficulty and passing flatus. Tolerating regular diet. Ambulating well ad solomon. Vital signs stable, afebrile. Heart was regular rate and rhythm. Lungs clear to auscultation. Abdomen soft, nontender. She had +1 bilateral lower extremity edema. No calf tenderness to palpation. Normal hospital course. She was discharged home on PPD # 1. Exam Data for Last 24 hours Vital signs and Labs for Last 24 Hours: Temp Pulse Resp BP Pulse Ox O2 Del Method 97.8 F 88 18 117/76 98 Room Air 06/14/23 20:00 06/14/23 20:00 06/14/23 20:00 06/14/23 20:00 06/14/23 20:00 06/14/23 20:00 Laboratory Results - last 24 hr 06/15/23 06:18: WBC 11.7 H D, RBC 3.47 L, Hgb 10.3 L, Hct 32.4 L, MCV 93.5, MCH 29.6, MCHC 31.7 L, RDW 14.5, Plt Count 258, MPV 10.3, Neut % (Auto) 64.2, Lymph % (Auto) 28.4, [place] % (Auto) 6.6, Eos % (Auto) 0.7, Baso % (Auto) 0.2, Neut # (Auto) 7.5, Lymph # (Auto) 3.3, [place] # (Auto) 0.8, Eos # (Auto) 0.1, Baso # (Auto) 0.0 I & O for Last 24 hours: Intake & Output 06/12/23 06/13/23 06/14/23 06/15/23 23:59 23:59 23:59 23:59 Weight 180 lb Constitutional Constitutional: no acute distress *Routine HEENT Exam Head: Present normocephalic and atraumatic Eye: Absent conjunctivae pink ENT: Present mucous membranes moist and dentition normal *Routine Neck Exam Neck: Present full ROM *Routine Respiratory Exam Respiratory: Present CTA bilaterally and normal respiratory effort *Routine Cardiovascular Exam Cardiovascular: Present RRR *Routine Abdominal Exam Abdominal: Present soft and normoactive bowel sounds; Absent tenderness or distended Comments: Uterine fundus firm and below umbilicus *Routine Rectal Exam Patient deferred: visual exam *Routine Exam Patient deferred: external exam *Routine Extremities Exam Extremities: Present edema (+1 bilateral lower extremity edema) and full ROM; Absent calf tenderness *Routine Neurological Exam Neurological: Present alert, oriented X3 and moving all extremities Routine Psychiatric Exam Psychiatric: Present normal affect Results Data Completed and Pending Labs on day of discharge: Labs from last 24 hours 06/15/23 06:18 WBC 11.7 H D RBC 3.47 L Hgb 10.3 L Hct 32.4 L MCV 93.5 MCH 29.6 MCHC 31.7 L RDW 14.5 Plt Count 258 MPV 10.3 Neut % (Auto) 64.2 Lymph % (Auto) 28.4 [place] % (Auto) 6.6 Eos % (Auto) 0.7 Baso % (Auto) 0.2 Neut # (Auto) 7.5 Lymph # (Auto) 3.3 [place] # (Auto) 0.8 Eos # (Auto) 0.1 Baso # (Auto) 0.0 DS: Diagnosis Discharge Diagnosis (1) 38 weeks gestation of : Status: Acute Code(s): Z3A.38 - 38 weeks gestation of (2) Spontaneous rupture of amniotic membranes: Status: Acute (3) Spontaneous onset of labor: Status: Acute (4) Acute blood loss anemia: Status: Acute Code(s): D62 - Acute posthemorrhagic anemia Meds Home Medications and Allergies Home Medications Medication Instructions Recorded Confirmed Type ce
== END 2023-06-15 15:10 | disposition home or self-care (01) | DRG 807 ==
LOC: OBOUT 16:08 → OB 16:08
PROVIDERS: Admitting Provider Obstetrics & Gynecology; PCP Nurse Practitioner Family; Visit Provider Obstetrics & Gynecology
DX: O70.0 First degree perineal laceration during delivery (principal); Z37.0 Single live birth; Z3A.38 38 weeks gestation of pregnancy
CPT/HCPCS: 59409; 59025; 80305; 81001; 84112; 85025; 86850; 94761; G0283; J2405

== ENCOUNTER → 2023-07-17 11:11 | Outpatient (CLI) | payer BC, SELFPAY ==
--- NOTE | 2023-07-17 11:14 | CA_ITS ---
APPROVED REPORT EXAM: Comprehensive 2D, Doppler, and color-flow Echocardiogram Piping Designer: Nathalie Montes RVT Ht: 5 ft 7 in Wt: 162lbs BSA: 1.85 BP: 110/70 mmHg Indications: MURMUR,TACHYCARDIA,PALPS, EX SMOKER 2D Dimensions LVOT 2.10 cm (M/F) 1.5-2.5 LA Volume 27.70 mL LA Volume Index 14.97 mL/m2 (M/F) 16-34 M-Mode Dimensions RVDd 2.30 cm (0.9-2.6) LA Diam 2.54 cm (1.9-4.0) LVDd 3.52 cm (3.5-5.7) Ao Diam 2.68 cm (2.0-3.7) LVDs 2.35 cm (3.5-5.7) IVSd 0.67 cm (0.6-1.1) PWd 0.35 cm (0.6-1.1) EF (Teich) 63.00% FS 33.20% EDV (Teich) 51.60 mL TAPSE 0.97 (<1.7) ESV (Teich) 19.10 mL LV Diastology E Decel Time 150.00 (160-240 msec) E/A Ratio 1.1 MED E' 11.60 (< 7 cm/sec) E'/MED E' Ratio 5.66 (>14) LAT E' 15.60 (<10 cm/sec) E/LAT E' Ratio 4.21 (>14) Aortic Valve AO Peak GR. 4.50 mmHg Mitral Valve MV E Max Oliverio. 66.00 (40-130 cm/s) MV A Velocity 60.00 (40-130 cm/s) E/A Ratio 1.10 MV Decel. Time 150.00 (160-240 ms) MV PHT 44.00 ms Pulmonary Valve PV Peak Velocity 57.00 (50-150 cm/s) Tricuspid Valve TR P. Velocity 257.00 cm/s RAP Estimate 10.00 mmHg RVSP 36.50 mmHg Left Ventricle The left ventricle is normal size. The left ventricular systolic function is mildly reduced. There is normal left ventricular wall thickness. Mild global hypokinesis is present. The left ventricular diastolic function is normal. LVEF is 45%. Right Ventricle The right ventricle is normal size. The right ventricular systolic function is normal. Atria The left atrium size is normal. The right atrium size is normal. There is no Doppler evidence of interatrial shunt. Aortic Valve The aortic valve opens well. There is no aortic valvular stenosis. No aortic regurgitation is present. Mitral Valve The mitral valve is normal in structure. No evidence of mitral valve stenosis. There is no mitral valve regurgitation noted. Tricuspid Valve The tricuspid valve leaflets are thin and pliable. Trace tricuspid regurgitation. There is insufficient TR jet to estimate RVSP. Pulmonic Valve The pulmonary valve is normal in structure. Trace pulmonic regurgitation. Great Vessels The aortic root is normal in size. Ascending aorta is normal in caliber. IVC is normal in size and collapses >50% with inspiration. Pericardium There is no pericardial effusion. Other Information Study Quality: Fair Conclusion Mildly reduced LV systolic function (LVEF 45-50%). No significant valvular stenosis or regurgitation. Further evaluation and confirmation of the LV systolic function is recommended by cardiac MRI (cardiomyopathy protocol). Electronically signed by : Nancy Glynn MD 07/21/2023 12:25:56
== END ==
PROVIDERS: PCP Nurse Practitioner Family; Visit Provider Nurse Practitioner Family
DX: R01.1 Cardiac murmur, unspecified (principal); R00.0 Tachycardia, unspecified
CPT/HCPCS: 93306